=== PATIENT | male | born 1975 | race Caucasian/White ===

== ENCOUNTER 2018-09-08 06:40 | Day surgery (SDC) | payer BC ==
[2018-09-08] MEDS ORDERED: Sodium Chloride 0.9% 10 ML Syringe FLUSH PRN (07:00)
[2018-09-08] MEDS ORDERED: Lactated Ringers 1,000 ML IV SCH (07:00)
[2018-09-08] MEDS ORDERED: fentaNYL 100 MCG/2 ML SDV ONE (07:47)
[2018-09-08] MEDS ORDERED: Propofol 200 MG/20 ML SDV ONE (07:47)
--- NOTE | 2018-09-08 11:54 | OR ---
PREOPERATIVE DIAGNOSIS: Gastroesophageal reflux disease. POSTOPERATIVE DIAGNOSIS: Normal exam of the esophagus, stomach, and duodenum. PROCEDURE PROPOSED: Upper gastrointestinal panendoscopy with antral biopsies. PROCEDURE DONE: Upper gastrointestinal panendoscopy with antral biopsies. INDICATION: This is a 42-year-old gentleman bothered with GERD-type symptoms. He has in the past taken Prilosec [id number] by himself with relief of symptoms. Most recently, now he tried some Prilosec which did not help any. He got placed on some Protonix about 3 weeks ago with some slight improvement in symptoms. He does drink a fair amount of alcohol. Does not consume much ibuprofen, caffeine, or nicotine and comes in for recommended EGD. He denies any dysphagia. TECHNIQUE: The patient brought to the endoscopy suite, placed in left lateral decubitus position. He was sedated per [employer] with propofol. The flexible video gastroscope was then passed transorally, and under visualization, advanced well into the fourth portion of the duodenum. The duodenum and duodenal bulb were entirely unremarkable. The antrum and body of the stomach looked quite healthy and without inflammation or ulceration. The pylorus was widely patent. A couple of antral biopsies were taken to rule out H. pylori. The GE junction did not reveal any hiatal hernia, and there were no signs of any visible GERD damage. There were no signs of any Schatzki's ring or stenosis and the remainder of esophagus was normal as the scope was then withdrawn. He tolerated the procedure well. FINAL IMPRESSION: Essentially normal exam of the esophagus, stomach, and duodenum. PLAN: I feel he should finish out an 8-week course of Prilosec to see if it does not help his symptoms. He has had an ultrasound of the gallbladder which was supposedly normal according to the patient. He may benefit with a HIDA scan if he continues to be symptomatic to rule out acalculous cholecystitis. SCM: 09/08/2018 09:05:25 MODL: 09/08/2018 11:46:13 /[id number]
--- NOTE | 2018-09-14 08:52 | LETTER ---
09/14/2018 Ney Gambino RE: NEY GAMBINO : 1975 Dear Ney: The biopsy taken from your stomach did reveal some inflammation compatible with gastritis and the most important thing is that you do not have the bacteria in your stomach known as H. pylori that can cause excess acid. Hopefully, you are improving in your symptoms. Respectfully,
== END 2018-09-08 10:16 | disposition home or self-care (01) ==
LOC: VM.SDS 06:40
PROVIDERS: ATTEND Surgery
DX: K31.89 Other diseases of stomach and duodenum (principal); K21.9 Gastro-esophageal reflux disease without esophagitis; G47.33 Obstructive sleep apnea (adult) (pediatric); Z87.891 Personal history of nicotine dependence; Z88.0 Allergy status to penicillin; Z79.899 Other long term (current) drug therapy
CPT/HCPCS: 43239; J2704; J3010; J7120

== ENCOUNTER 2021-09-06 12:53 | Day surgery (SDC) | payer BC, OTHER ==
[~2021-09-06 12:53] MED LIST: Lactated Ringers 1,000 ML IV SCH; Sodium Chloride 0.9% 10 ML Syringe FLUSH PRN
[2021-09-06] MEDS ORDERED: Propofol 200 MG/20 ML SDV ONE ×2 (14:29→15:35)
[2021-09-06] MEDS ORDERED: fentaNYL 100 MCG/2 ML SDV ONE (14:29)
== END 2021-09-06 16:58 | disposition home or self-care (01) ==
LOC: VM.SDS 12:53
PROVIDERS: ATTEND Family Medicine
DX: D12.2 Benign neoplasm of ascending colon (principal); K57.30 Diverticulosis of large intestine without perforation or abscess without bleeding; K64.9 Unspecified hemorrhoids; G47.33 Obstructive sleep apnea (adult) (pediatric); K21.9 Gastro-esophageal reflux disease without esophagitis; Z88.0 Allergy status to penicillin; E66.9 Obesity, unspecified; Z98.890 Other specified postprocedural states; Z87.891 Personal history of nicotine dependence; Z68.35 Body mass index [BMI] 35.0-35.9, adult
CPT/HCPCS: 00811; J2704; J3010; J7120